=== PATIENT | male | born 1960 | race Caucasian/White ===

== ENCOUNTER 2017-01-03 10:01 | Outpatient (CLI) | payer OTHER | END 2017-01-03 23:00 | LOC: RT SRH 10:01 | DX: J44.9 Chronic obstructive pulmonary disease, unspecified (principal) ==

== ENCOUNTER 2017-02-12 12:48 | Outpatient (CLI) | payer OTHER | END 2017-02-12 23:00 | LOC: RT SRH 12:48 | PROC: 4A12X45 Monitoring of Cardiac Electrical Activity, Ambulatory, External Approach (ICD-10-PCS; principal; 2017-02-12) | DX: R42 Dizziness and giddiness (principal) ==